=== PATIENT | male | born 1940 | race African-American/Black ===

== ENCOUNTER 2016-11-12 07:54 | Inpatient (IN) ==
[2016-11-12 09:52] LABS: Basophils % 0.5 % (0.0-0.8); Hematocrit 32.8 VOL% (42.0-52.0); Hemoglobin 9.5 GM/DL (14.0-18.0); Immature Granulocytes % 0.3 %; Immature Granulocytes Absolute 0.01 #; Lymphocytes # 0.5 10*3/uL (1.4-4.0); Lymphocytes % 12.3 % (21.2-54.2); Mean Corpuscular Hemoglobin 21 PG (27-34); Mean Corpuscular Volume 72.6 FL (87-102); Monocytes # 0.6 10*3/uL (0.11-0.8); Monocytes % 14.1 % (1.7-12.7); NRBC # 0.04 10*3/uL; Neutrophils # 2.8 10*3/uL (1.4-7.4); Neutrophils % 71.8 % (38.7-73.9); Platelet Count 155 10*3/uL (130-400); Red Blood Count 4.52 10*6/uL (3.8-5.5); Red Cell Distribution Width 22.1 % (9.3-17.3); White Blood Count 3.9 10*3/uL (4.5-13.71)
--- NOTE | 2016-11-12 09:56 | Emergency Department Note ---
Arrival - Arrival ED Nursing Triage Note: C/O chest pain and SOB X 1 week. Pt and family are poor historians. Mode of Arrival: Wheelchair Source: Patient - History of Present Illness Onset (ago): week(s) (1) Severity: mild <Kelsi Powell - Last Filed: 11/12/16 09:51> <Krishna King Cornel - Last Filed: 11/12/16 11:22> - Arrival Chief Complaint: Chest Pain Stated Complaint: CHEST PAIN/SOB STOMACH PAIN Time Seen by Provider: 11/12/16 09:14 - History of Present Illness HPI Narrative: 76 y/o black male presents to the ER with his daughter complaining of anxiety, insomnia, dyspnea and chest pain x 1 week. Patient daughter states he has episodes where he screams out during the day and night but is unable to tell her what is wrong. Patient is a very poor historian. Past medical history significant for CHF, renal insufficiency, HTN, CABG, gout, and pacemaker. Patients primary care physician: Dr. Brown. Senior Center Director: Dr. Salmon. Neurologist: Dr. Franklin (Kelsi Powell) Allergies/Adverse Reactions: Allergies Allergy/AdvReac Type Severity Reaction Status Date / Time aspirin Allergy Unknown/Unable Verified 06/09/16 18:33 to obtain Penicillins Allergy Unknown/Unable Verified 06/09/16 18:33 to obtain Home Medications: Home Medications Medication Instructions Recorded Confirmed Type Carvedilol [Coreg] 6.25 mg PO BID 06/09/16 06/09/16 History Febuxostat [Uloric] 40 mg PO DAILY 06/09/16 06/09/16 History Isosorbide Mononitrate [Isosorbide 30 mg PO DAILY 06/09/16 06/09/16 History Mononitrate ER] Albuterol/Ipratropium Neb [Duoneb] 3 ml RESP TX TID nebulization 06/13/16 Rx solution Bisacodyl Tab [Dulcolax Tab] 10 mg PO DAILY PRN #0 tablet 06/13/16 Rx Docusate Sodium Cap [Colace Cap] 100 mg PO BID PRN #0 capsule 06/13/16 Rx Furosemide Tab [Lasix Tab] 80 mg PO BID DIURETIC #0 06/13/16 06/09/16 Rx Lactulose Liquid [Chronulac] 20 gm PO Q4H PRN #0 udcup 06/13/16 Rx Nicotine 21 mg/24 Hr Patch 1 patch TRANSDERM DAILY patch 06/13/16 Rx [Nicoderm CQ 21 mg/24 hr Patch] Pantoprazole Tab [Protonix Tab] 40 mg PO DAILY tablet 06/13/16 Rx Tamsulosin [Flomax] 0.4 mg PO DAILY capsule 06/13/16 Rx hydrALAZINE TAB [Apresoline Tab] 25 mg PO TID #0 06/13/16 06/09/16 Rx Acetamin/Codeine 300-30 Tab 1 tablet PO Q6H #10 tablet 06/22/16 Rx [Tylenol/Codeine #3] Clindamycin Cap [Cleocin Cap] 300 mg PO Q8HR #30 capsule 06/22/16 Rx Review of System - Review of System ROS unobtainable: other (very poor historian ) 12 point system: reviewed and no additional remarkable complaints except as stated - Review of System Cardiovascular: Present: chest pain, other (dyspnea ) Psychiatric: Present: anxiety <Kelsi Powell - Last Filed: 11/12/16 09:51> Medical,Surgical,& Family Hx - Medical History Cardio: History of: CHF, Hypertension Rheumatology: History of;: Gout Renal: History of: Renal Problems ("Kidneys weakened") Musculoskeletal: History of: Musculoskeletal Problems (arthritis) Hematology: History of: Anemia - Surgical History Cardiac Surgeries: Sugical HX of: Cardiac Catheterization, Cardiac Surgery ( bypass in 2010), Internal Defibrillator (pacemaker) - Family History Family History: Reports;: Family Heart Disease, Family Hypertension Denies;: Family Diabetes - Social History Smoking Status: Current every day smoker Frequency of Alcohol Use: None Type of Drug Use: None <Kelsi Powell - Last Filed: 11/12/16 09:51> Exam - General General appearance: alert, in no apparent distress - ENT ENT exam: Present: normal exam, normal oropharynx, mucous membranes moist - Chest Chest inspection: Present: normal inspection - Respiratory Respiratory exam: Present: normal lung sounds bilaterally - Cardiovascular Cardiovascular exam: Present: regular rate, normal rhythm, normal heart sounds, other (1+pedal edema ) - Abdominal Exam Abdominal exam: Present: distention, tenderness (LUQ, LLQ), hypoactive bowel sounds - Extremities Exam Extremities exam: Present: normal inspection, full ROM - Neurological Exam Neurological exam: Present: alert, oriented X3 - Psychiatric Psychiatric exam: Present: normal affect, normal mood - Skin Skin exam: Present: warm, dry <Kelsi Powell - Last Filed: 11/12/16 09:51> Vital Signs: Vital Signs Temperature 97.4 F L 11/12/16 08:06 Pulse Rate 79 11/12/16 08:06 Respiratory Rate 22 11/12/16 08:06 Blood Pressure 129/79 11/12/16 08:06 O2 Sat by Pulse Oximetry 97 11/12/16 08:06 (Kelsi Powell) (Krishna King) Results <AndreKelsi - Last Filed: 11/12/16 09:51> - Labs CBC & BMP: 11/12/16 09:06 11/12/16 09:06 Lab Results: I have reviewed the patients labs - Diagnostic Findings Procedure: CT Abdomen and Pelvis: image reviewed by me ([place] pleural effusions with dependent atelectatic changes and cardiomegaly. Anasarca. Ascites. Iliac aneurysms incidentally noted. Other findings to be discussed and final radiology report.) <Krishna King - Last Filed: 11/12/16 11:22> - Labs Labs: Lab Results WBC 3.9 10*3/uL (4.5-13.71) L 11/12/16 09:06 RBC 4.52 10*6/uL (3.8-5.5) 11/12/16 09:06 Hgb 9.5 GM/DL (14.0-18.0) L 11/12/16 09:06 Hct 32.8 VOL% (42.0-52.0) L 11/12/16 09:06 MCV 72.6 FL (87-102) L 11/12/16 09:06 MCH 21 PG (27-34) L 11/12/16 09:06 MCHC 29.0 GM/DL (32-36) L 11/12/16 09:06 RDW 22.1 % (9.3-17.3) H 11/12/16 09:06 Plt Count 155 10*3/uL (130-400) 11/12/16 09:06 Neut % (Auto) 71.8 % (38.7-73.9) 11/12/16 09:06 Lymph % (Auto) 12.3 % (21.2-54.2) L 11/12/16 09:06 [place] % (Auto) 14.1 % (1.7-12.7) H 11/12/16 09:06 Eos % (Auto) 1.0 % (0.00-10.9) 11/12/16 09:06 Baso % (Auto) 0.5 % (0.0-0.8) 11/12/16 09:06 Neut # (Auto) 2.8 10*3/uL (1.4-7.4) 11/12/16 09:06 Lymph # (Auto) 0.5 10*3/uL (1.4-4.0) L 11/12/16 09:06 [place] # (Auto) 0.6 10*3/uL (0.11-0.8) 11/12/16 09:06 Eos # (Auto) 0.0 10*3/uL (0.0-0.87) 11/12/16 09:06 Baso # (Auto) 0.0 10*3/uL (0.0-0.2) 11/12/16 09:06 Immature Gran % 0.3 % 11/12/16 09:06 Nucleated RBC % 1.0 /100WBC 11/12/16 09:06 Immature Gran # 0.01 # 11/12/16 09:06 Nucleated RBCs # 0.04 10*3/uL 11/12/16 09:06 Polychromasia Slight 11/12/16 09:06 Hypochromasia 2+ 11/12/16 09:06 Target Cells Slight 11/12/16 09:06 Acanthocytes (Spur) 1+ 11/12/16 09:06 Morphology Comment 11/12/16 09:06 Sodium 143 MMOL/L (136-145) 11/12/16 09:06 Potassium 4.3 MMOL/L (3.5-5.1) 11/12/16 09:06 Chloride 110 MMOL/L (98-107) H 11/12/16 09:06 Carbon Dioxide 20 MMOL/L (21-32) L 11/12/16 09:06 Anion Gap 17.3 MMOL/L (5.0-15.0) H 11/12/16 09:06 BUN 91 MG/DL (7-18) H 11/12/16 09:06 Creatinine 3.80 MG/DL (0.70-1.30) H 11/12/16 09:06 GFR Calculation 18 ML/MIN 11/12/16 09:06 BUN/Creatinine Ratio 23.00 RATIO (6.00-20.00) H 11/12/16 09:06 Glucose 65 MG/DL (74-106) L 11/12/16 09:06 Calculated Osmolality 310.0 MOS/KG (273-304) H 11/12/16 09:06 Calcium 9.0 MG/DL (8.5-10.1) 11/12/16 09:06 Total Bilirubin 1.30 MG/DL (0.2-1.0) H 11/12/16 09:06 AST 25 U/L (0-37) 11/12/16 09:06 ALT 17 U/L (16-61) 11/12/16 09:06 Alkaline Phosphatase 202 U/L (45-117) H 11/12/16 09:06 Total Creatine Kinase 237 U/L (39-308) 11/12/16 09:06 CK-MB (CK-2) 8.1 U/L (0.5-3.6) H 11/12/16 09:06 CK and CKMB Interp 3.4 % 11/12/16 09:06 Troponin I 0.134 NG/ML (0.00-0.045) H 11/12/16 09:06 B-Natriuretic Peptide 1630 PG/ML (2-100) H 11/12/16 09:06 Total Protein 8.5 G/DL (6.4-8.3) H 11/12/16 09:06 Albumin 3.3 G/DL (3.4-5.0) L 11/12/16 09:06 Globulin 5.2 G/DL (2.3-3.5) H 11/12/16 09:06 Albumin/Globulin Ratio 0.6 RATIO (1.1-2.2) L 11/12/16 09:06 Lipase 129.0 U/L (73-393) 11/12/16 09:50 Urine Color Straw (Yellow) 11/12/16 09:10 Urine Appearance Clear (Clear) 11/12/16 09:10 Urine pH 5.0 (4.5-8.0) 11/12/16 09:10 Ur Specific [place] 1.008 (1.001-1.035) 11/12/16 09:10 Urine Protein Negative MG/DL 11/12/16 09:10 Urine Glucose (UA) Negative mg/dL (Negative) 11/12/16 09:10 Urine Ketones Negative mg/dL (Negative) 11/12/16 09:10 Urine Blood Negative mg/dL (Negative) 11/12/16 09:10 Urine Nitrate Negative (Negative) 11/12/16 09:10 Urine Bilirubin Negative mg/dL (Negative) 11/12/16 09:10 Urine Urobilinogen < 2.0 EU/DL (0.2-1.0) H 11/12/16 09:10 Urine Leukocytes Negative Neelam/ul (Negative) 11/12/16 09:10 Urine RBC 1 /HPF (0-4) 11/12/16 09:10 Urine WBC <1 /HPF (0-6) 11/12/16 09:10 Hyaline Casts 1 /LPF (0-3) 11/12/16 09:10 Urine Mucus Occasional /LPF (Occasional) 11/12/16 09:10 Ur Culture Indicated? Not indicated 11/12/16 09:10 (Krishna King) Disposition <Kelsi Powell - Last Filed: 11/12/16 09:51> Case discussed with: patient, patient's family Time of Disposition: 11:22 <Krishna King - Last Filed: 11/12/16 11:22> Clinical Impression: Anemia, CHF exacerbation, BPH (benign prostatic hyperplasia), Dyspnea, Insulin dependent diabetes mellitus Disposition: Still a Patient Condition: Stable
[2016-11-12 10:00] LABS: Apearance,Urine CLEAR (Clear); Bilirubin,Urine Negative (Negative); Blood, Urine Negative (Negative); Glucose,Urine (UA) Negative (Negative); Hyaline Casts,Urine 1 /LPF (0-3); Ketones,Urine Negative (Negative); Mucus,Urine Occasional /LPF (Occasional); Nitrite,Urine Negative (Negative); Protein,Urine Negative; RBC,Urine 1 /HPF (0-4); Urine Color Straw (Yellow); Urine Specific Gravity 1.008 (1.001-1.035); Urine Urobilinogen < 2.0 EU/DL (0.2-1.0); WBC,Urine <1 /HPF (0-6)
[2016-11-12 10:08] LABS: Albumin 3.3 G/DL (3.4-5.0); Bilirubin,Total 1.3 MG/DL (0.2-1.0); CKMB % 3.4 %; Potassium 4.3 MMOL/L (3.5-5.1); Total Protein 8.5 G/DL (6.4-8.3)
[2016-11-12 10:11] LABS: Troponin I Only 0.134 NG/ML (0.00-0.045)
--- NOTE | 2016-11-12 10:12 | XRay Report ---
Exam: XR chest 1V Date: 11/12/2016 9:26 AM Comparison: 06/09/2016 Indication: Chest pain, dyspnea Technique: AP sitting chest Findings: Stable cardiomegaly with prior median sternotomy. Left subclavian atrioventricular AICD. Reduced parenchymal findings with resolved pleural effusions. Stable mediastinum with degenerative changes. Spina bifida occulta defect at T1. Impression: Improved CHF with chronic scarring in patient with prior median sternotomy. Stable left subclavian atrioventricular AICD. PROCEDURE INTERPRETED AT [facility] DEPARTMENT OF RADIOLOGY Final Report Signed by: Dr. Aundrea Vaughn
--- NOTE | 2016-11-12 10:18 | XRay Report ---
Exam: XR abdomen 2V Date: 11/12/2016 9:28 AM Comparison: 06/09/2016 Indication: Generalized abdominal pain, distention Technique: Supine and left lateral decubitus abdomen Findings: Nonobstructed bowel gas pattern. Radiolucent findings noted in the right lateral abdominal location. Left subclavian atrioventricular AICD with prior median sternotomy. Postoperative findings in the left femoral location with diffuse arterial calcifications. Degenerative changes are noted. Impression: Nonobstructed bowel gas pattern with no free air. Diffuse arterial calcifications are noted. Stable postoperative findings. Radiolucent findings in the right lateral abdominal location on the decubitus films which is probably related to overlapping soft tissue densities since no definite free air is identified in the accompanying chest x-ray. However CT would be helpful to exclude possible very small pneumoperitoneum. PROCEDURE INTERPRETED AT [facility] DEPARTMENT OF RADIOLOGY Final Report Signed by: Dr. Aundrea Vaughn
[2016-11-12 10:42] LABS: Acanthocytes 1+; Hypochromasia 2+; Polychromasia Slight; Target Cells Slight
--- NOTE | 2016-11-12 11:25 | CT Report ---
Referring physician: Krishna King EXAM: CT abdomen and pelvis without contrast DATE: November 12, 2016 COMPARISON: Abdominal x-ray November 12, 2016 REASON: Generalized abdominal pain, abnormal x-ray TECHNIQUE: Axial images of the abdomen and pelvis were obtained without the use of contrast. Coronal and sagittal reformatted images were also provided. Total DLP is 486.7 mGy*cm. FINDINGS: Lower thorax: There is cardiomegaly, sternotomy change and cardiac pacing leads. Mild bilateral pleural fluid is present, and there is minimal bibasilar atelectasis. ABDOMEN: Liver: Unremarkable as visualized. Gallbladder and bile ducts: There may be small gallstones, but this is difficult to confirm. Evaluation for cholecystitis is limited by ascites. No biliary duct dilatation is seen. Pancreas: Unremarkable. Spleen: Unremarkable. Adrenals: Unremarkable. Kidneys and ureters: No hydronephrosis is present. There are small calcifications at the renal fletcher bilaterally, which are favored to be vascular. No ureteral calculi are seen. There is a probable cyst at the lower pole of the right kidney, which is difficult to evaluate due to motion artifact. It measures approximately 4.4 cm. PELVIS: Bladder: Unremarkable. Reproductive: The prostate is mildly enlarged. ABDOMEN AND PELVIS: Bowel: There is no evidence of bowel obstruction. Evaluation for bowel inflammation is limited by ascites and areas of poor distention, but no definite bowel inflammation is seen. Appendix: The appendix is not identified. Vasculature: The abdominal aorta is mildly aneurysmal, measuring 3.1 x 3.0 cm on image 68. The descending thoracic aorta is also mildly prominent, measuring 3.0 cm in diameter. There is moderate scattered calcified plaque at the arteries. Peritoneum: No free air is identified, but there is mild to moderate scattered ascites within the abdomen and pelvis. Lymph nodes: No suspicious adenopathy is seen. Abdominal/pelvic wall: There is prominent anasarca. A small umbilical hernia is present and contains ascites. There are also small fat-containing bilateral inguinal hernias with minimal ascites extending into the left inguinal hernia. Surgical clips are noted at the left groin. Bones: There are a few small sclerotic densities at the osseous pelvis.. There are nonspecific but likely represent bone islands. Scattered degenerative change is seen at the pelvis and spine, but no acute osseous process is identified. IMPRESSION: 1. No free air is identified. 2. Cardiomegaly, mild bilateral pleural effusions and minimal bibasilar atelectasis. 3. Mild to moderate ascites and prominent anasarca. 4. Mild aneurysmal dilatation of the aorta, measuring 3.1 x 3.0 cm below the renal arteries. 5. Small umbilical hernia containing ascites. There are also small bilateral fat-containing inguinal hernias with minimal ascites within the left inguinal hernia. 6. Possible gallstones. 7. Right renal cyst. 8. Prostamegaly. The CT exam was performed using one or more of the following dose reduction techniques: Automated exposure control and adjustment of the mA and/or kV according to patient size. PROCEDURE INTERPRETED AT [facility] DEPARTMENT OF RADIOLOGY Final Report Signed by: Dr. Russ Castañeda
[2016-11-12] MEDS ORDERED: ONDANSETRON 4 MG/2 ML VIAL IV PRN (11:33)
[2016-11-12] MEDS ORDERED: LACTULOSE 20 GM/30 ML UDCUP PO PRN (11:33)
[2016-11-12] MEDS ORDERED: DEXTROSE 50% 25 GM/50 ML VIAL IV PRN (11:33)
[2016-11-12] MEDS ORDERED: GLUCAGON 1 MG VIAL IM PRN (11:33)
[2016-11-12] MEDS ORDERED: ACETAMINOPHEN 325 MG TABLET PO PRN (11:33)
[2016-11-12] MEDS ORDERED: MORPHINE 2 MG/1 ML SYRINGE IV PRN (11:33)
--- NOTE | 2016-11-12 14:00 | Hospitalist History & Physical ---
Assessment and Plan - Time spent with patient Time spent with patient: Greater than 30 minutes (1) CHF exacerbation Status: Acute Assessment and plan: admit Resume home meds as appropriate IV Lasix, allen cath monitor I&O routine labs in AM DVT prophylaxis further plan and addendum to follow per DR. Mims Current Visit: Yes History of Present Illness Chief complaint: shortness of breath, edema History of present illness: Mr. Johns is a 76 year old male who presented to the Er today with dyspnea and chest pain and insomnia. ER physician states that pt's daughter says he will scream out in pain but is unable to tell her why. Mr. Johns is a very poor historian and has difficulty speaking with me. He is not able to provide ROS of PMH. Old record review shows him with a PMH significant for HTN, CHF, Renal insufficiency, gout, CABG, and PM. His PCP is Dr. Brown, sales and retail management recruiter is Dr. Salmon. Today he is noted to have anasarca, an elevated BNP, and CHF on CXR. His last ECHO is noted with an EF of 10-15% with severely decreased systolic function. Home Medications Medication Instructions Recorded Confirmed Type Carvedilol [Coreg] 6.25 mg PO BID 06/09/16 06/09/16 History Febuxostat [Uloric] 40 mg PO DAILY 06/09/16 06/09/16 History Isosorbide Mononitrate [Isosorbide 30 mg PO DAILY 06/09/16 06/09/16 History Mononitrate ER] Albuterol/Ipratropium Neb [Duoneb] 3 ml RESP TX TID nebulization 06/13/16 Rx solution Bisacodyl Tab [Dulcolax Tab] 10 mg PO DAILY PRN #0 tablet 06/13/16 Rx Docusate Sodium Cap [Colace Cap] 100 mg PO BID PRN #0 capsule 06/13/16 Rx Furosemide Tab [Lasix Tab] 80 mg PO BID DIURETIC #0 06/13/16 06/09/16 Rx Lactulose Liquid [Chronulac] 20 gm PO Q4H PRN #0 udcup 06/13/16 Rx Nicotine 21 mg/24 Hr Patch 1 patch TRANSDERM DAILY patch 06/13/16 Rx [Nicoderm CQ 21 mg/24 hr Patch] Pantoprazole Tab [Protonix Tab] 40 mg PO DAILY tablet 06/13/16 Rx Tamsulosin [Flomax] 0.4 mg PO DAILY capsule 06/13/16 Rx hydrALAZINE TAB [Apresoline Tab] 25 mg PO TID #0 06/13/16 06/09/16 Rx Acetamin/Codeine 300-30 Tab 1 tablet PO Q6H #10 tablet 06/22/16 Rx [Tylenol/Codeine #3] Clindamycin Cap [Cleocin Cap] 300 mg PO Q8HR #30 capsule 06/22/16 Rx Allergies Allergy/AdvReac Type Severity Reaction Status Date / Time aspirin Allergy Unknown/Unable Verified 06/09/16 18:33 to obtain Penicillins Allergy Unknown/Unable Verified 06/09/16 18:33 to obtain Medical,Surgical,& Family Hx - Medical History Cardio: History of: CHF, Hypertension Rheumatology: History of;: Gout Renal: History of: Renal Problems ("Kidneys weakened") Musculoskeletal: History of: Musculoskeletal Problems (arthritis) Hematology: History of: Anemia - Surgical History Cardiac Surgeries: Sugical HX of: Cardiac Catheterization, Cardiac Surgery ( bypass in 2010), Internal Defibrillator (pacemaker) - Family History Family History: Reports;: Family Heart Disease, Family Hypertension Denies;: Family Diabetes - Social History Smoking Status: Current every day smoker Frequency of Alcohol Use: None Type of Drug Use: None ROS unobtainable: due to mental status Exam - Constitutional General appearance: no acute distress, over weight - Head Head exam: Present: normal inspection, normocephalic - Eye Eye exam: Present: EOMI. Absent: scleral icterus Pupils: Present: WINSOME, normal accommodation - ENT ENT exam: Present: normal exam, normal oropharynx - Neck Neck exam: Present: normal inspection. Absent: lymphadenopathy - Respiratory Respiratory exam: Present: decreased breath sounds, other (coarse wet bilat). Absent: wheezes - Cardiovascular Cardiovascular exam: Present: regular rate and rhythm. Absent: tachycardia - GI/Abdominal GI/Abdominal exam: Present: normal bowel sounds, soft. Absent: tenderness - Extremities Exam Extremities exam: Present: normal inspection, full ROM. Absent: edema - Back Exam Back exam: Present: normal inspection. Absent: muscle spasm - Neurological Exam Neurological exam: Present: alert, altered (at neuro baseline) - Psychiatric Psychiatric exam: Present: normal affect, normal mood - Skin Skin exam: Present: normal color, warm, dry Results - Labs CBC & BMP: 11/12/16 09:06 11/12/16 09:06 Lab Results: I have reviewed the past 24 hour labs
[2016-11-12] MEDS: FUROSEMIDE 40 MG/4 ML VIAL IV SCH (16:04)
[2016-11-13] MEDS ORDERED: ALUMINUM/MAGNES/SIMETH MAX STR 30 ML UDCUP PO PRN (00:32)
[2016-11-13 00:47] LABS: Basophils % 0.5 % (0.0-0.8); Eosinophils % 0.8 % (0.00-10.9); Hematocrit 29.4 VOL% (42.0-52.0); Hemoglobin 8.5 GM/DL (14.0-18.0); Immature Granulocytes % 0.5 %; Immature Granulocytes Absolute 0.02 #; Lymphocytes # 0.3 10*3/uL (1.4-4.0); Lymphocytes % 8.9 % (21.2-54.2); Mean Corpuscular HGB Conc 28.9 GM/DL (32-36); Mean Corpuscular Hemoglobin 21 PG (27-34); Mean Corpuscular Volume 72.1 FL (87-102); Monocytes # 0.6 10*3/uL (0.11-0.8); Monocytes % 16.5 % (1.7-12.7); NRBC # 0.08 10*3/uL; Neutrophils # 2.8 10*3/uL (1.4-7.4); Neutrophils % 72.8 % (38.7-73.9); Platelet Count 138 T/CUMM (130-400); Red Blood Count 4.08 MC/CUMM (3.8-5.5); Red Cell Distribution Width 21.9 % (9.3-17.3); White Blood Count 3.8 T/CUMM (4-12)
[2016-11-13 00:59] LABS: Albumin 3.1 G/DL (3.4-5.0); Bilirubin,Total 1.6 MG/DL (0.2-1.0); Calcium 8.5 MG/DL (8.5-10.1); Osmolality,Calculated 320.6 MOS/KG (273-304); Potassium 4.1 MMOL/L (3.5-5.1); Total Protein 7.5 G/DL (6.4-8.3)
[2016-11-13 01:01] LABS: CKMB % 3.4 %
[2016-11-13 01:02] LABS: Troponin I Only 0.124 NG/ML (0.00-0.045)
[2016-11-13 04:59] LABS: Eosinophils 2 % (0-10); Lymphocytes 12 % (20-55); Nucleated Red Blood Cells 3 (0-5); Platelet Estimate Normal; Segmented Neutrophils 68 % (50-85); Total Cells Counted 100
--- NOTE | 2016-11-13 06:18 | EKG Report ---
Stationary ECG Study [facility] Test Date: 11/13/2016 12:19:44 AM Pat Name: KAVITHA RAMIREZ Department: Room: 233 Gender: M Game Designer: KEI : 1940 Requested by: Simeon Sherwood Order Number: [id number] Reading MD: ALONSO GHOSH Intervals [place] Rate: 63 P: -84 NE: 126 QRS: -79 QRSD: 165 T: 133 QT: 473 QTc: 481 Interpretive Statements ELECTRONIC ATRIAL PACEMAKER ELECTRONIC VENTRICULAR PACEMAKER ABNORMAL RHYTHM ECG Electronically Signed On 11-13-16 18:05:18 ARMORED CABLE MACHINE OPERATOR by ALONSO GHOSH [email or web address]
[2016-11-13] MEDS: FUROSEMIDE 40 MG/4 ML VIAL IV SCH (08:02)
--- NOTE | 2016-11-13 08:25 | XRay Report ---
Referring Physician: Simeon Sherwood Exam: XR KUB Date: November 13, 2016 at 7:49 AM Reason: Abdominal distention Comparison: Abdomen 2 views November 12, 2016 Findings: There is no evidence of bowel obstruction or free air. There is cardiomegaly, sternotomy change and cardiac pacing leads. Scattered arterial calcification is also present, and there are pelvic phleboliths. The osseous structures appear stable with scattered degenerative change at the spine and osseous pelvis. Impression: 1. No acute abdominal process is identified. 2. Cardiomegaly. PROCEDURE INTERPRETED AT [facility] DEPARTMENT OF RADIOLOGY Final Report Signed by: Dr. Russ Castañeda
--- NOTE | 2016-11-13 09:21 | EKG Report ---
Stationary ECG Study [facility] ER Test Date: 11/12/2016 8:06:33 AM Pat Name: KAVITHA RAMIREZ Department: Room: 233 Gender: M [employer]: : 1940 Requested by: Brad Navarrete Order Number: [id number] Reading MD: ALONSO GHOSH Intervals [place] Rate: 56 P: 999 TN: 106 QRS: 234 QRSD: 169 T: 108 QT: 508 QTc: 500 Interpretive Statements ATRIAL FIBRILLATION VENTRICULAR PACING Electronically Signed On 11-13-16 17:59:27 WELT POCKET MACHINE OPERATOR by ALONSO GHOSH [id number]
--- NOTE | 2016-11-13 12:33 | Hospitalist Progress Note ---
Assessment and Plan - Time spent with patient Time spent with patient: Greater than 30 minutes (1) CHF exacerbation Status: Acute Assessment and plan: He appears to be stable. We'll discontinue his Lasix. Creatinine quita a little bit. Current Visit: Yes (2) Bradycardia Status: Acute Assessment and plan: Pacemaker in place. Current Visit: Yes (3) Chest pain Status: Acute Assessment and plan: Serial troponins are at baseline. He does not complain of chest pain currently. Will consult cardiology for bradycardia and chest pain. Current Visit: No (4) Chronic kidney disease, stage IV (severe) Status: Acute Assessment and plan: Patient's creatinine quita slightly with administration of Lasix. This current value likely represents his normal creatinine. Current Visit: No (5) BPH (benign prostatic hyperplasia) Status: Acute Assessment and plan: Continue homes medications. Current Visit: Yes Hospitalist: Subjective Interval history: Patient agrees he feels much better this morning. He is an extremely poor historian and is unable to tell me much more than that despite several attempts to get the review of systems out of him. Exam - Constitutional Vitals: Period Temp Pulse Resp BP Sys/Shafer Pulse Ox Last 24 Hr 96.8 F-98.1 F 52-98 14-23 98-132/51-78 96-100 General appearance: no acute distress - Head Head exam: Present: normocephalic, atraumatic - Eye Eye exam: Present: EOMI Pupils: Present: WINSOME - ENT ENT exam: Present: normal exam - Neck Neck exam: Present: normal inspection - Respiratory Respiratory exam: Present: clear to auscultation bilaterally. Absent: rhonchi, wheezes - Cardiovascular Cardiovascular exam: Present: regular rate and rhythm. Absent: gallop, rubs, systolic murmur - GI/Abdominal GI/Abdominal exam: Present: normal bowel sounds, ascites, distended, soft. Absent: firm, guarding, tenderness, rebound - Extremities Exam Extremities exam: Present: normal inspection. Absent: calf tenderness, edema Results - Labs CBC & BMP: 11/13/16 00:16 11/13/16 00:16 Lab Results: I have reviewed the past 24 hour labs
[2016-11-13] MEDS: PANTOPRAZOLE 40 MG TABLET PO SCH (14:45)
--- NOTE | 2016-11-13 16:17 | Cardiology Consult Note ---
Black Thakkar Rachel, DANA, am scribing for, and in the presence of, Ronel Collins DO 16:11. Assessment and Plan (1) CHF exacerbation Status: Acute Current Visit: Yes (2) Cardiomyopathy Status: Chronic Assessment and plan: Echo done 10/22/16, EF 20% noted. Current Visit: No (3) Dyspnea Status: Chronic Current Visit: Yes (4) Anemia of chronic disease Status: Chronic Assessment and plan: H&H stable at 8.5 and 29.4, continue current plan of care. Current Visit: No (5) Gastroesophageal reflux Status: Chronic Current Visit: No (6) Chronic kidney disease, stage IV (severe) Status: Chronic Assessment and plan: Creatinine 4.2 noted, Routinely followed by Dr. Franklin. Current Visit: No (7) BPH (benign prostatic hyperplasia) Status: Acute Assessment and plan: Continue current plan of care. Current Visit: Yes (8) Ventricular bigeminy Status: Acute Assessment and plan: This is the etiology of the patient's "bradycardia" and recommend resumption of his beta-sania to suppress PVCs and also we have increased the rate of his pacing hopefully this will suppress the frequent PVCs. Current Visit: Yes (9) Coronary artery disease Status: Acute Current Visit: Yes Qualifiers: Coronary Disease-Associated Artery/Lesion type: [place] artery [place] vs. transplanted heart: [place] heart Associated angina: without angina Qualified Code(s): I25.10 - Atherosclerotic heart disease of [place] coronary artery without angina pectoris (10) Renal failure Status: Chronic Current Visit: No History of Present Illness - Data of Consult Patient: known to practice within the last 3 years Consult date: 11/13/16 Requesting Physician: Park Mims Primary care physician: Fernandez Brown - Consult Narrative Reason for consult: chest pain and bradycardia History of present illness: Mr. Johns is a 76 year old male patient with known coronary artery disease. He is routinely followed by Dr. Salmon. Patient is a very poor historian, majority of information obtained from the chart and old records. He has risk factors significant for hypertension, known coronary artery disease, dyslipidemia, smoker, sedentary lifestyle, obesity, and age. His past medical history includes: Chronic renal failure (followed by Dr. Franklin), ischemic cardiomyopathy (EF 20% noted on echo 10/22/16), gout, BPH, and GERD. According to previous records, he had a CABG and ICD/biventricular pacemaker ( interrogated August 2016) in [place] in 2010. However, we have no record of this and the patient is unable to tell me the hospital or physician who performed this operation. He denies family history of cardiac disease. He was last seen in the clinic by Dr. Salmon on 10/22/16. At that that time he was complaining of chronic dyspnea on exertion and orthopnea. An echo was done which revealed an EF of 20%, mild LVH, mild to severe biatrial enlargement, mild to moderate MR, moderate TR, mild aortic regurgitation, and a PAP 48 mmHg. His coreg was increased from 6.25 mg BID to coreg 12.5 BID at that time. It was also noted that patient did not tolerate Entresto well, this caused him to be more short of breath and was discontinued. Not on BETTY/ARB due to fear of worsening renal failure. Lexiscan was done February 2016 which revealed large severe inferior and moderate apical scarring with no ischemia. Patient was in his usual state of health until one week ago when he began experiencing chest pain, shortness of breath, and insomnia. Patient is a very poor historian and does not respond when asked questions. Unable to perform ROS. Upon exam patient's abdomen is noted to be extremely distended. When abdomen is palpated, patient moans loudly and reports pain. Patient denies all other complaints at this time. KUB - Nonobstructed bowel gas pattern with no free air. CT recommended. CT abdomen - No free air, cardiomegaly, mild aneurysmal dilatation of the aorta measuring 3.1 x 3.0, small unbilical hernia containing ascites, right renal cyst , and possible gallstones. Labs - Troponin (0.134 and 0.124) After reviewing previous records, patient seems to have chronically elevated troponins, baseline 0.1. BNP was 1630, yesterday. Diuresed with Lasix yesterday, discontinued today due to elevated creatinine 4.2. I saw and examined discussed the patient with [place]. As above. We discussed and also discussed with Mr. Marcel andres represented from [employer]. We interrogated his device. I reviewed his interrogation from August of this year as well. The patient has ischemic cardiomyopathy EF of 20% and is status post CRTD. He has bradycardia from frequent PVCs. We have made some adjustments to his defibrillator such as increasing the lower rate to 70 and also I recommend that we resume his beta-sania hopefully these will suppress the PVCs. The patient is encephalopathic or have his altered mental status this time he was unable to answer any questions. The most impressive finding on his physical exam is a resident distended apparently painful abdomen. This is being evaluated by the hospitalist. CC: Park Mims MD - Home Medications and Allergies Home Medications: Home Medications Medication Instructions Recorded Confirmed Type Febuxostat [Uloric] 40 mg PO DAILY 06/09/16 11/13/16 History Isosorbide Mononitrate [Isosorbide 30 mg PO DAILY 06/09/16 11/13/16 History Mononitrate ER] Pantoprazole Tab [Protonix Tab] 40 mg PO DAILY tablet 06/13/16 11/13/16 Rx Tamsulosin [Flomax] 0.4 mg PO DAILY capsule 06/13/16 11/13/16 Rx Carvedilol [Coreg] 12.5 mg PO BID 11/13/16 11/13/16 History Furosemide Tab [Lasix Tab] 40 mg PO BID DIURETIC 11/13/16 11/13/16 History Allergies/Adverse Reactions: Allergies Allergy/AdvReac Type Severity Reaction Status Date / Time aspirin Allergy Unknown/Unable Verified 06/09/16 18:33 to obtain Penicillins Allergy Unknown/Unable Verified 06/09/16 18:33 to obtain ROS unobtainable: due to mental status (The patient will only moaning any time you ask him a question. The only word that I can understand he said was "Esparza. 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[employer] - Interrogated 11/13/16 - results in chart) - Family History Family History: Denies;: Family Diabetes - Social History Smoking Status: Former smoker Frequency of Alcohol Use: None Type of Drug Use: None Physical Examination Vital Signs Temp Pulse Resp BP Pulse Ox 97.4 F L 79 22 129/79 97 11/12/16 08:06 11/12/16 08:06 11/12/16 08:06 11/12/16 08:06 11/12/16 08:06 General: Present: Other (Chronically ill appearing in mild amount of distress slightly tachypneic and moaning) Neck: Present: Supple Neck, Midline Trachea, No Masses, No Bruit, No Lymphadenopathy, No Thyromegaly Cardiac: Present: Reg Rate and Rhythm (Tones are very difficult to hear. PMI is not localized), Regular Rate, S1/S2 Lungs: Present: Decreased Breath Sounds, Bibasilar Rales, Oxygen Abdomen: Present: Active Bowel Sounds, Tender, Firm, Distended, Other (Resident to percussion with significant discomfort) Skin: Present: Clear. Absent: Rash, Suspicious Lesions, Ulceration, Wound Extremities: Present: Normal Gait, No Clubbing, No Cyanosis, Normal Upper Extr. Pulses, +1 Edema, Other (decreased BLE pulses. ) Result/EKG - Labs CBC & BMP: 11/13/16 00:16 11/13/16 00:16 Lab Results: I have reviewed the past 24 hour labs Labs: Laboratory Results - last 24 hr 11/12/16 11/12/16 11/13/16 15:09 19:56 00:16 WBC RBC Hgb Hct MCV MCH MCHC RDW Plt Count Neut % (Auto) Lymph % (Auto) [place] % (Auto) Eos % (Auto) Baso % (Auto) Neut # (Auto) Lymph # (Auto) [place] # (Auto) Eos # (Auto) Baso # (Auto) Total Counted Immature Gran % Nucleated RBC % Immature Gran # Segmented Neutrophils Lymphocytes Monocytes Eosinophils Basophils Nucleated RBCs Nucleated RBCs # Platelet Estimate Sodium Potassium Chloride Carbon Dioxide Anion Gap BUN Creatinine GFR Calculation BUN/Creatinine Ratio Glucose POC Glucose 108 H 110 H Calculated Osmolality Calcium Total Bilirubin AST ALT Alkaline Phosphatase Total Creatine Kinase 197 CK-MB (CK-2) 6.7 H CK and CKMB Interp 3.4 Troponin I 0.124 H Total Protein Albumin Globulin Albumin/Globulin Ratio 11/13/16 11/13/1611/13/17 00:16 00:16 08:31 WBC 3.8 L RBC 4.08 Hgb 8.5 L Hct 29.4 L MCV 72.1 L MCH 21 L MCHC 28.9 L RDW 21.9 H Plt Count 138 Neut % (Auto) 72.8 Lymph % (Auto) 8.9 L [place] % (Auto) 16.5 H Eos % (Auto) 0.8 Baso % (Auto) 0.5 Neut # (Auto) 2.8 Lymph # (Auto) 0.3 L [place] # (Auto) 0.6 Eos # (Auto) 0.0 Baso # (Auto) 0.0 Total Counted 100 Immature Gran % 0.5 Nucleated RBC % 2.1 Immature Gran # 0.02 Segmented Neutrophils 68 Lymphocytes 12 L Monocytes 17 H Eosinophils 2 Basophils 1.0 H Nucleated RBCs 3 Nucleated RBCs # 0.08 Platelet Estimate Normal Sodium 146 H Potassium 4.1 Chloride 112 H Carbon Dioxide 22 Anion Gap 16.1 H BUN 100 H Creatinine 4.20 H GFR Calculation 16 BUN/Creatinine Ratio 23.00 H Glucose 104 POC Glucose 104 Calculated Osmolality 320.6 H Calcium 8.5 Total Bilirubin 1.60 H AST 18 ALT 17 Alkaline Phosphatase 193 H Total Creatine Kinase CK-MB (CK-2) CK and CKMB Interp Troponin I Total Protein 7.5 Albumin 3.1 L Globulin 4.4 H Albumin/Globulin Ratio 0.7 L - EKG EKG results: interpreted by me (pacer rhythm ) I, Rnoel Collins, , personally performed the services described in this documentation, ascribed by Sharita Cleaning, DANA in my presence, and it is both accurate and complete 616 .
[2016-11-13] MEDS ORDERED: CARVEDILOL 6.25 MG TABLET PO SCH (17:00)
[2016-11-13] MEDS: CARVEDILOL 12.5 MG TABLET PO SCH (20:55)
[2016-11-14 06:10] LABS: Basophils % 0.3 % (0.0-0.8); Hematocrit 28.9 VOL% (42.0-52.0); Hemoglobin 8.5 GM/DL (14.0-18.0); Immature Granulocytes % 0.3 %; Immature Granulocytes Absolute 0.01 #; Lymphocytes # 0.4 10*3/uL (1.4-4.0); Lymphocytes % 9.5 % (21.2-54.2); Mean Corpuscular HGB Conc 29.4 GM/DL (32-36); Mean Corpuscular Hemoglobin 21 PG (27-34); Mean Corpuscular Volume 71.7 FL (87-102); Monocytes # 0.6 10*3/uL (0.11-0.8); NRBC # 0.04 10*3/uL; Neutrophils % 74.9 % (38.7-73.9); Platelet Count 134 T/CUMM (130-400); Red Blood Count 4.03 MC/CUMM (3.8-5.5); Red Cell Distribution Width 22.2 % (9.3-17.3)
[2016-11-14 06:28] LABS: Hypochromasia 2+; Ovalocytes Few; Target Cells Few
[2016-11-14 06:29] LABS: Microcytosis 2+
[2016-11-14 06:30] LABS: Platelet Estimate Adequate
[2016-11-14 06:35] LABS: Calcium 8.6 MG/DL (8.5-10.1); Osmolality,Calculated 326.3 MOS/KG (273-304); Potassium 4.3 MMOL/L (3.5-5.1)
[2016-11-14] MEDS ORDERED: PANTOPRAZOLE 40 MG TABLET PO SCH (09:00)
[2016-11-14] MEDS: CARVEDILOL 12.5 MG TABLET PO SCH ×2 (09:46→20:22)
[2016-11-14] MEDS: FUROSEMIDE 40 MG TABLET PO SCH ×2 (09:46→16:48)
[2016-11-14] MEDS: TAMSULOSIN 0.4 MG CAPSULE PO SCH (09:46)
[2016-11-14] MEDS: PANTOPRAZOLE 40 MG TABLET PO SCH (09:46)
[2016-11-14] MEDS: ISOSORBIDE MONONITRATE 30 MG TABLET PO SCH (09:47)
[2016-11-14] MEDS ORDERED: SIMETHICONE DROPS 40 MG/0.6 ML 30 ML BOTTLE PO PRN (12:01)
--- NOTE | 2016-11-14 12:09 | Hospitalist Progress Note ---
Assessment and Plan (1) Hypernatremia Status: Acute Assessment and plan: Sodium level continued to increase, 148 likely due due to dehydration and poor oral intake Will start on D5W at 75 cc per hr Recheck sodium level in am Current Visit: Yes (2) CHF exacerbation Status: Chronic Assessment and plan: Patient with anasarca and mild and moderate ascites On Lasix therapy Continue current medical regimen as cardiology recommend Restarted on beta-blockers Current Visit: Yes (3) Ventricular bigeminy Status: Acute Assessment and plan: His pacemaker low threshold was increased to 70 He started on Coreg Heart rate 60-70 last night Current Visit: Yes (4) Anemia of chronic disease Status: Chronic Assessment and plan: H&H is stable we will continue to monitor H and H Current Visit: No (5) BPH (benign prostatic hyperplasia) Status: Chronic Assessment and plan: Continue home medication Current Visit: No (6) Cardiomyopathy Status: Chronic Assessment and plan: Ischemic cardiomyopathy Status post ICD placement On Lasix therapy Current Visit: No (7) Renal failure Status: Chronic Assessment and plan: His creatinine 4.2 I suspect is due to poor oral intake, dehydration and Lasix therapy Will repeat creatinine level in the morning Start on D5W maintenance If creatinine continues to rise we will consult renal Current Visit: No Hospitalist: Subjective Interval history: Mr. Johns is a 76 year old male who presented to the Er today with dyspnea and chest pain and insomnia. ER physician states that pt's daughter says he will scream out in pain but is unable to tell her why. Mr. Johns is a very poor historian and has difficulty speaking with staff. He is not able to provide ROS of PMH. Old record review shows him with a PMH significant for HTN, CHF, Renal insufficiency, gout, CABG, and PM. His PCP is Dr. Brown, ship erector is Dr. Salmon. Cardiology was consulted. His last echo revealed ejection fraction 20%. It was noted that his bradycardia due to PVCs, recommended to restart beta blockers and PM was increase to low 70/min. Apparently his abdomen was distended and he was tender on abdominal palpation. Abdominal CT was ordered, acute intra-abdominal abnormalities was noted, just mild to moderate ascites, anasarca. Today: Alert. He can say his name. No distress noted. Denies pain. Afebrile. Vital signs stable. He was ambulating with assistance of physical therapy yesterday. Exam - Constitutional Vitals: Period Temp Pulse Resp BP Sys/Shafer Pulse Ox Last 24 Hr 97.4 F-97.9 F 20-70 0-22 116-128/70-79 96-97 General appearance: normal weight, no acute distress, over weight - Head Head exam: Present: normal inspection, normocephalic, atraumatic - Eye Eye exam: Present: EOMI Pupils: Present: WINSOME - ENT ENT exam: Present: normal exam - Neck Neck exam: Present: normal inspection - Respiratory Respiratory exam: Present: clear to auscultation bilaterally - Cardiovascular Cardiovascular exam: Present: regular rate and rhythm - GI/Abdominal GI/Abdominal exam: Present: normal bowel sounds, distended, firm, hypoactive bowel sounds, other ([place] on percussion x 4 ) - Extremities Exam Extremities exam: Present: normal inspection, normal capillary refill - Neurological Exam Neurological exam: Present: alert (does not communicate ) - Skin Skin exam: Present: normal color, warm Results - Labs CBC & BMP: 11/14/16 05:54 11/14/16 05:54
--- NOTE | 2016-11-14 12:23 | Cardiology Progress Note ---
I, Britt Yap, RN, am scribing for, and in the presence of, Ronel Collins DO 12 :23. Assessment and Plan (1) Anemia Status: Acute Assessment and plan: H&H is slightly lower today at 8.5 and 28.9. Current Visit: Yes (2) BPH (benign prostatic hyperplasia) Status: Chronic Current Visit: No (3) CHF exacerbation Status: Chronic Assessment and plan: His sodium is elevated he has some ascites. I discussed with Dr. Maldonado I agree with some gentle hydration. Current Visit: Yes Qualifiers: Congestive heart failure type: combined Qualified Code(s): I50.43 - Acute on chronic combined systolic (congestive) and diastolic (congestive) heart failure (4) Coronary artery disease Status: Chronic Current Visit: No Qualifiers: Coronary Disease-Associated Artery/Lesion type: [place] artery [place] vs. transplanted heart: [place] heart Associated angina: without angina Qualified Code(s): I25.10 - Atherosclerotic heart disease of [place] coronary artery without angina pectoris (5) Ventricular bigeminy Status: Acute Current Visit: Yes (6) Dyspnea Status: Chronic Current Visit: Yes (7) Cardiomyopathy Status: Chronic Assessment and plan: EF 20% on ECHO done 10/22/16. Current Visit: No (8) Chronic kidney disease, stage IV (severe) Status: Chronic Current Visit: No (9) Gastroesophageal reflux Status: Chronic Current Visit: No Cardiology - PN: Subj Interval history: Resting in bed in no acute distress. He does not respond to any questions except with moans. He is not on telemetry monitoring, but his vital signs have documented his heart rate in the 50-70 range during the night, blood pressures stable. I saw Mr. Johns with this daily. The patient is much more alert today. He is eating lunch when I saw him. He is somewhat conversant but still appears to be slightly confused and unaware of his baseline. He is currently paced. With increase in his pacer rate and beta-sania his VPCs have dramatically decreased. Exam (Progress Note) - Constitutional Vitals: Period Temp Pulse Resp BP Sys/Shafer Pulse Ox Last 24 Hr 97.4 F-97.9 F 20-70 0-22 116-128/63-79 96-98 General appearance: no acute distress, over weight - Head Head exam: Absent: abrasion, hematoma - Eye Eye exam: Absent: periorbital swelling, laceration to eyelids - Respiratory Respiratory exam: Present: rales. Absent: accessory muscle use, decreased breath sounds - Cardiovascular Cardiovascular exam: Present: regular rate and rhythm, other (ICD noted) - GI/Abdominal GI/Abdominal exam: Present: normal bowel sounds, distended (Resident and slightly less tender), firm - Extremities Exam Extremities exam: Present: edema (1+ bilateral lower extremities) - Neurological Exam Neurological exam: Present: alert. Absent: oriented X3 (unable to fully assess as he only moans) - Skin Skin exam: Present: warm, dry Result/EKG - Labs CBC & BMP: 11/14/16 05:54 11/14/16 05:54 Labs: Laboratory Results - last 24 hr 11/13/16 11/14/16 11/14/16 08:31 05:54 05:54 WBC 4.0 RBC 4.03 Hgb 8.5 L Hct 28.9 L MCV 71.7 L MCH 21 L MCHC 29.4 L RDW 22.2 H Plt Count 134 Neut % (Auto) 74.9 H Lymph % (Auto) 9.5 L [place] % (Auto) 14.0 H Eos % (Auto) 1.0 Baso % (Auto) 0.3 Neut # (Auto) 3.0 Lymph # (Auto) 0.4 L [place] # (Auto) 0.6 Eos # (Auto) 0.0 Baso # (Auto) 0.0 Immature Gran % 0.3 Nucleated RBC % 1.0 Immature Gran # 0.01 Nucleated RBCs # 0.04 Platelet Estimate Adequate Hypochromasia 2+ Microcytosis 2+ Target Cells Few Ovalocytes Few Sodium 148 H Potassium 4.3 Chloride 114 H Carbon Dioxide 21 Anion Gap 17.3 H BUN 105 H Creatinine 4.20 H GFR Calculation 16 BUN/Creatinine Ratio 25.00 H Glucose 100 POC Glucose 104 Calculated Osmolality 326.3 H Calcium 8.6 11/14/16 07:05 WBC RBC Hgb Hct MCV MCH MCHC RDW Plt Count Neut % (Auto) Lymph % (Auto) [place] % (Auto) Eos % (Auto) Baso % (Auto) Neut # (Auto) Lymph # (Auto) [place] # (Auto) Eos # (Auto) Baso # (Auto) Immature Gran % Nucleated RBC % Immature Gran # Nucleated RBCs # Platelet Estimate Hypochromasia Microcytosis Target Cells Ovalocytes Sodium Potassium Chloride Carbon Dioxide Anion Gap BUN Creatinine GFR Calculation BUN/Creatinine Ratio Glucose POC Glucose 101 Calculated Osmolality Calcium I, Ronel Collins DO, personally performed the services described in this documentation, ascribed by Britt Yap RN in my presence, and it is both accurate and complete .
[2016-11-14] MEDS: DEXTROSE 5% 1,000 ML IV SCH (14:29)
--- NOTE | 2016-11-14 15:56 | Case Mgmt Physician Query Form ---
TB Signs and Symptoms Screening ([place]) INSTRUCTIONS: To be completed annually on residents/staff with a significant Tuberculin Skin Test (TST) upon admission/hire or a prior significant TST. To be completed on all staff at hire. Please respond to each listed symptom with an (X) in either the "YES" or "NO" box. Do you currently have any of the following symptoms: YES NO ( ) ( ) A cough If yes, is it: ( ) Productive ( ) Non- productive ( ) ( ) Hemoptysis (spitting up blood) ( ) ( ) Chest pains ( ) ( ) Weight Loss ( ) ( ) Fever ( ) ( ) Night Sweats ( ) ( ) Weakness ( ) ( ) Loss of Appetite ( ) ( ) Difficulty Breathing If you answered YES" to any of the above questions, how long have symptoms been present? Comments: RAFITA
[2016-11-15] MEDS: DEXTROSE 5% 1,000 ML IV SCH ×2 (06:16→19:39)
[2016-11-15 06:39] LABS: Calcium 8.4 MG/DL (8.5-10.1); Osmolality,Calculated 320.7 MOS/KG (273-304)
[2016-11-15] MEDS: ISOSORBIDE MONONITRATE 30 MG TABLET PO SCH ×2 (07:53→10:38)
[2016-11-15] MEDS: PANTOPRAZOLE 40 MG TABLET PO SCH ×2 (07:53→10:38)
[2016-11-15] MEDS: CARVEDILOL 12.5 MG TABLET PO SCH ×3 (07:54→22:42)
[2016-11-15] MEDS: FUROSEMIDE 40 MG TABLET PO SCH ×2 (07:54→16:20)
[2016-11-15] MEDS: TAMSULOSIN 0.4 MG CAPSULE PO SCH ×2 (07:54→10:38)
--- NOTE | 2016-11-15 10:09 | Case Mgmt Physician Query Form ---
TB Signs and Symptoms Screening ([place]) INSTRUCTIONS: To be completed annually on residents/staff with a significant Tuberculin Skin Test (TST) upon admission/hire or a prior significant TST. To be completed on all staff at hire. Please respond to each listed symptom with an (X) in either the "YES" or "NO" box. Do you currently have any of the following symptoms: YES NO ( ) (x ) A cough If yes, is it: ( ) Productive ( ) Non- productive ( ) ( x) Hemoptysis (spitting up blood) ( ) (x ) Chest pains ( ) (x ) Weight Loss ( ) (x ) Fever ( ) (x ) Night Sweats ( ) (x ) Weakness ( ) (x ) Loss of Appetite ( ) (x ) Difficulty Breathing If you answered YES" to any of the above questions, how long have symptoms been present? Comments: RAFITA
--- NOTE | 2016-11-15 10:26 | Hospitalist Progress Note ---
Assessment and Plan (1) Hypernatremia Status: Acute Assessment and plan: Sodium level 145 cont on D5W at 75 cc per hr Recheck sodium level in am Current Visit: Yes (2) CHF exacerbation Status: Chronic Assessment and plan: Patient with anasarca and mild and moderate ascites On Lasix therapy Continue current medical regimen as cardiology recommended Restarted on beta-blockers Current Visit: Yes Qualifiers: Congestive heart failure type: combined Qualified Code(s): I50.43 - Acute on chronic combined systolic (congestive) and diastolic (congestive) heart failure (3) Ventricular bigeminy Status: Acute Assessment and plan: His pacemaker low threshold was increased to 70 He started on Coreg Heart rate 60-70/min Current Visit: Yes (4) Anemia of chronic disease Status: Chronic Assessment and plan: H&H is stable we will continue to monitor H and H Current Visit: No (5) BPH (benign prostatic hyperplasia) Status: Chronic Assessment and plan: Continue home medication Current Visit: No (6) Cardiomyopathy Status: Chronic Assessment and plan: Ischemic cardiomyopathy Status post ICD placement On Lasix therapy Current Visit: No (7) Renal failure Status: Chronic Assessment and plan: pt has a h/o CKD, not on HD His creatinine 4.1 Cr on admit 3.8 I suspect is due to poor oral intake, dehydration and Lasix therapy cont gentle hydration with D5W at 75 cc/hr nephrology consulted Current Visit: No Hospitalist: Subjective Interval history: Mr. Johns is a 76 year old male who presented to the Er with dyspnea and chest pain and insomnia. ER physician states that pt's daughter says he will scream out in pain but is unable to tell her why. Mr. Johns is a very poor historian and has difficulty speaking with staff. He is not able to provide ROS of PMH. Old record review shows him with a PMH significant for HTN, CHF, Renal insufficiency, gout, CABG, and PM. His PCP is Dr. Brown, high school biology teacher is Dr. Salmon. Cardiology was consulted. His last echo revealed ejection fraction 20%. It was noted that his bradycardia due to PVCs, recommended to restart beta blockers and PM was increase to low 70/min. Apparently his abdomen was distended and he was tender on abdominal palpation. Abdominal CT was ordered, no acute intra-abdominal abnormalities was noted, just mild to moderate ascites , anasarca. Today: Alert. She does not answer questions. He moans. No distress noted. Denies pain. Afebrile. Vital signs stable. CR -4.1. He was ambulating with assistance of physical therapy. CM consulted for swing bed placement. Exam - Constitutional Vitals: Period Temp Pulse Resp BP Sys/Shafer Pulse Ox Last 24 Hr 97.6 F-98.2 F 69-70 18-22 116-130/71-88 94-99 General appearance: normal weight, no acute distress, other (moans ) - Head Head exam: Present: normal inspection, normocephalic - Eye Eye exam: Present: EOMI Pupils: Present: WINSOME - ENT ENT exam: Present: normal exam - Neck Neck exam: Present: normal inspection - Respiratory Respiratory exam: Present: decreased breath sounds. Absent: clear to auscultation bilaterally - Cardiovascular Cardiovascular exam: Present: regular rate and rhythm - GI/Abdominal GI/Abdominal exam: Present: normal bowel sounds, distended, other (mild ascites , tympany on percussion ) - Extremities Exam Extremities exam: Present: normal inspection, normal capillary refill - Neurological Exam Neurological exam: Present: alert, other (doen not respond to questions ) - Psychiatric Psychiatric exam: Present: depressed, flat affect - Skin Skin exam: Present: normal color, warm, dry Results - Labs CBC & BMP: 11/14/16 05:54 11/15/16 05:13
[2016-11-15] MEDS ORDERED: TUBERCULIN SKIN TEST 0.1 ML SYRINGE INTRADERM ONE (12:00)
--- NOTE | 2016-11-15 12:11 | Nephrology Consult Note ---
History of Present Illness Chief complaint: chronic renal failure History of present illness: Mr. Johns is a 76 year old male whom I have followed in the past for chronic renal failure. He was admitted with shortness of breath and bradycardia. He was noted to have bigeminy and his pacemaker was adjusted along with increasing his beta sania. He has chronic renal failure with creatinine between 3.2 and 3.8 since June 2015. He was treated with diuretics for shortness of breath this admission. BUN, creatinine and sodium have risen. He opens his eyes to voice but does not answer questions. Home Medications Medication Instructions Recorded Confirmed Type Febuxostat [Uloric] 40 mg PO DAILY 06/09/16 11/13/16 History Isosorbide Mononitrate [Isosorbide 30 mg PO DAILY 06/09/16 11/13/16 History Mononitrate ER] Pantoprazole Tab [Protonix Tab] 40 mg PO DAILY tablet 06/13/16 11/13/16 Rx Tamsulosin [Flomax] 0.4 mg PO DAILY capsule 06/13/16 11/13/16 Rx Carvedilol [Coreg] 12.5 mg PO BID 11/13/16 11/13/16 History Furosemide Tab [Lasix Tab] 40 mg PO BID DIURETIC 11/13/16 11/13/16 History Allergies Allergy/AdvReac Type Severity Reaction Status Date / Time aspirin Allergy Unknown/Unable Verified 06/09/16 18:33 to obtain Penicillins Allergy Unknown/Unable Verified 06/09/16 18:33 to obtain Medical,Surgical,& Family Hx - Medical History Cardio: History of: CHF (ischemic CM with both systolic and diastolic dysfunction.NYHA III-IV StageC), CAD (CABG at some point in 2010 in [place]), Hypertension, Pacemaker Rheumatology: History of;: Gout Renal: History of: Renal Problems Genitourinary: History of: Prostate Problems Gastrointestinal: History of: GERD Musculoskeletal: History of: Musculoskeletal Problems (arthritis) Hematology: History of: Anemia - Surgical History Cardiac Surgeries: Sugical HX of: Cardiac Catheterization, Cardiac Surgery ( bypass in 2010), Internal Defibrillator ([employer]D [employer] - Interrogated 11/13/16 - results in chart) - Family History Family History: Reports;: Family Heart Disease, Family Hypertension Denies;: Family Diabetes - Social History Smoking Status: Former smoker Frequency of Alcohol Use: None Type of Drug Use: None Review of Systems ROS unobtainable: due to mental status Exam - Vital Signs Vital signs: Period Temp Pulse Resp BP Sys/Shafer Pulse Ox Last 24 Hr 97.4 F-98.2 F 69-70 18-22 116-130/76-88 94-99 Exam: Gen.: He opens his eyes to voice. He does not answer questions. ENT: Pupils equal round reactive to light. Neck: Supple. No JVD or bruit. Cardiovascular: Regular rate and rhythm. No murmur rub or gallop Lungs: No rales or wheezes Abdomen: Mildly distended. Nontender Extremities: Trace pedal edema Results - Labs CBC & BMP: 11/14/16 05:54 11/15/16 05:13 Assessment and Plan (1) Chronic kidney disease, stage IV (severe) Status: Chronic Assessment and plan: 76-year-old man admitted with: * Cardiomyopathy. Ejection fraction 20%. * Bigeminy. Improved with medications. * AICD * Chronic renal failure, stage IV. Creatinine range 3.2-3.8 since June 2015. Weight on 06/22/2016 was 79.4 kg. Weight on 11/12/2016 was 81.6 kg. He developed hypernatremia and creatinine quita with diuresis. He has poor cardiac output and renal underperfusion. Diuretics tend to cause worse prerenal azotemia. Agree with judicious IV fluid. * Anemia Current Visit: No (2) Hypernatremia Status: Acute Current Visit: Yes (3) Ventricular bigeminy Status: Acute Current Visit: Yes (4) Insulin dependent diabetes mellitus Status: Chronic Current Visit: Yes (5) BPH (benign prostatic hyperplasia) Status: Chronic Current Visit: No (6) Cardiomyopathy Status: Chronic Current Visit: No (7) Coronary artery disease Status: Chronic Current Visit: No Qualifiers: Coronary Disease-Associated Artery/Lesion type: [place] artery [place] vs. transplanted heart: [place] heart Associated angina: without angina Qualified Code(s): I25.10 - Atherosclerotic heart disease of [place] coronary artery without angina pectoris
--- NOTE | 2016-11-15 17:16 | Cardiology Progress Note ---
Marely Thakkar April RN, am scribing for, and in the presence of, Ronel Collins DO 17 :14. Assessment and Plan - Time spent with patient Time spent with patient: Less than 30 minutes (1) Anemia Status: Acute Current Visit: Yes (2) BPH (benign prostatic hyperplasia) Status: Chronic Current Visit: No (3) CHF exacerbation Status: Chronic Current Visit: Yes Qualifiers: Congestive heart failure type: combined Qualified Code(s): I50.43 - Acute on chronic combined systolic (congestive) and diastolic (congestive) heart failure (4) Coronary artery disease Status: Chronic Current Visit: No Qualifiers: Coronary Disease-Associated Artery/Lesion type: [place] artery [place] vs. transplanted heart: [place] heart Associated angina: without angina Qualified Code(s): I25.10 - Atherosclerotic heart disease of [place] coronary artery without angina pectoris (5) Ventricular bigeminy Status: Acute Assessment and plan: Much improved Current Visit: Yes (6) Dyspnea Status: Chronic Current Visit: Yes (7) Cardiomyopathy Status: Chronic Assessment and plan: EF 20% on ECHO done 10/22/16. Current Visit: No (8) Chronic kidney disease, stage IV (severe) Status: Chronic Current Visit: No (9) Gastroesophageal reflux Status: Chronic Current Visit: No Cardiology - PN: Subj Interval history: Resting in bed in no acute distress. He will not answer any questions, but moans whenever asked anything or touched. Heart rates and blood pressures are better. Mr. Johns is a little more conversant today. He denies any cardiopulmonary complaints. No further recommendations at this time. His ectopy is improved with increasing his beta-sania and increase in the lower rate on his pacemaker/defibrillator. Nothing further to add at this time. Please call if needed. Exam (Progress Note) - Constitutional Vitals: Period Temp Pulse Resp BP Sys/Shafer Pulse Ox Last 24 Hr 97.4 F-98.2 F 69-70 18-22 116-130/71-88 94-99 General appearance: no acute distress, over weight - Head Head exam: Absent: abrasion, hematoma - Eye Eye exam: Absent: periorbital swelling, laceration to eyelids - Respiratory Respiratory exam: Present: rales. Absent: accessory muscle use, chest wall tenderness - Cardiovascular Cardiovascular exam: Present: regular rate and rhythm (No PVC) - GI/Abdominal GI/Abdominal exam: Present: normal bowel sounds, ascites, firm - Extremities Exam Extremities exam: Present: edema (1+ to bilateral lower extremities) - Neurological Exam Neurological exam: Present: alert. Absent: oriented X3 - Skin Skin exam: Present: warm, dry Result/EKG - Labs CBC & BMP: 11/14/16 05:54 11/15/16 05:13 Labs: Laboratory Results - last 24 hr 11/14/16 11/15/16 11:09 05:13 Sodium 145 Potassium 4.0 Chloride 112 H Carbon Dioxide 19 L Anion Gap 18.0 H BUN 99 H Creatinine 4.10 H GFR Calculation 17 BUN/Creatinine Ratio 24.00 H Glucose 131 H POC Glucose 118 H Calculated Osmolality 320.7 H Calcium 8.4 L Ammonia 139 H Karina Thakkar Shea, DO, personally performed the services described in this documentation, ascribed by Britt Yap RN in my presence, and it is both accurate and complete 716 .
[2016-11-16 07:59] LABS: Calcium 8.4 MG/DL (8.5-10.1); Osmolality,Calculated 315.8 MOS/KG (273-304); Potassium 3.9 MMOL/L (3.5-5.1)
[2016-11-16] MEDS: TAMSULOSIN 0.4 MG CAPSULE PO SCH (08:39)
[2016-11-16] MEDS: PANTOPRAZOLE 40 MG TABLET PO SCH (08:40)
[2016-11-16] MEDS: CARVEDILOL 12.5 MG TABLET PO SCH ×2 (08:40→20:51)
[2016-11-16] MEDS: ISOSORBIDE MONONITRATE 30 MG TABLET PO SCH (08:40)
[2016-11-16] MEDS: FUROSEMIDE 40 MG TABLET PO SCH (08:40)
[2016-11-16] MEDS: DEXTROSE 5% 1,000 ML IV SCH ×2 (08:42→21:00)
[2016-11-16] MEDS: DOCUSATE SODIUM 100 MG CAPSULE PO PRN (10:06)
--- NOTE | 2016-11-16 10:09 | Hospitalist Progress Note ---
Assessment and Plan (1) Hypernatremia Status: Acute Assessment and plan: Sodium level 144 cont on D5W at 75 cc per hr Recheck sodium level in am Current Visit: Yes (2) CHF exacerbation Status: Chronic Assessment and plan: Patient with mild/moderate ascites On Lasix therapy Continue current medical regimen as cardiology recommended with beta-blockers and acei Current Visit: Yes Qualifiers: Congestive heart failure type: combined Qualified Code(s): I50.43 - Acute on chronic combined systolic (congestive) and diastolic (congestive) heart failure (3) Ventricular bigeminy Status: Acute Assessment and plan: His pacemaker low threshold was increased to 70 He started on Coreg Heart rate 60-70/min Current Visit: Yes (4) Anemia of chronic disease Status: Chronic Assessment and plan: H&H is stable we will continue to monitor H and H Current Visit: No (5) BPH (benign prostatic hyperplasia) Status: Chronic Assessment and plan: Continue home medication with flomax Current Visit: No (6) Cardiomyopathy Status: Chronic Assessment and plan: Ischemic cardiomyopathy Status post ICD placement On Lasix therapy Current Visit: No (7) Renal failure Status: Chronic Assessment and plan: pt has a h/o CKD, not on HD His creatinine improving, 3.6 this am Cr on admit 3.8 I suspect is due to poor oral intake, dehydration and Lasix therapy cont gentle hydration with D5W at 75 cc/hr appreciate nephrology assistance Current Visit: No (8) Constipation Status: Acute Assessment and plan: start on daily colace 100 mg BID and lactulose PRN cont PT/OT for mobility Current Visit: Yes Hospitalist: Subjective Interval history: Mr. Johns is a 76 year old male who presented to the Er with dyspnea and chest pain and insomnia. ER physician states that pt's daughter says he will scream out in pain but is unable to tell her why. Mr. Johns is a very poor historian and has difficulty speaking with staff. He is not able to provide ROS of PMH. Old record review shows him with a PMH significant for HTN, CHF, Renal insufficiency, gout, CABG, and PM. His PCP is Dr. Brown, military pay clerk is Dr. Salmon. Cardiology was consulted. His last echo revealed ejection fraction 20%. It was noted that his bradycardia due to PVCs, recommended to restart beta blockers and PM was increase to low 70/min. Apparently his abdomen was distended and he was tender on abdominal palpation. Abdominal CT was ordered, no acute intra-abdominal abnormalities was noted, just mild to moderate ascites , anasarca. Today: Alert. No distress noted. His abdomen still distended. I spoke to the nurse, I was told that she manually did fecal disimpaction may need stool softener. His heart rate stable, range of 60-70s per minute. Neurology signed off. Renal function is improving. He is on gentle IV hydration with D5W. Patient is currently waiting for transfer to swing bed. Exam - Constitutional Vitals: Period Temp Pulse Resp BP Sys/Shafer Pulse Ox Last 24 Hr 97.3 F-97.9 F 67-71 16-20 109-125/58-89 97-100 General appearance: over weight, morbidly obese - Head Head exam: Present: normal inspection, normocephalic, atraumatic - Eye Eye exam: Present: EOMI Pupils: Present: WINSOME - ENT ENT exam: Present: normal exam - Neck Neck exam: Present: normal inspection - Respiratory Respiratory exam: Present: clear to auscultation bilaterally - Cardiovascular Cardiovascular exam: Present: regular rate and rhythm - GI/Abdominal GI/Abdominal exam: Present: normal bowel sounds, distended, other (no tenderness on palpation; tympany on percusion ) - Extremities Exam Extremities exam: Present: normal inspection, normal capillary refill - Neurological Exam Neurological exam: Present: alert - Psychiatric Psychiatric exam: Present: normal affect - Skin Skin exam: Present: normal color, warm, dry Results - Labs CBC & BMP: 11/14/16 05:54 11/16/16 05:57
--- NOTE | 2016-11-16 12:30 | Nephrology Progress Note ---
Nephrology - PN: Subj Interval history: He is much more alert today. He is sitting up eating lunch. He denies shortness of breath. Exam (PN)-Nephrology - Vital Signs Vital signs: Period Temp Pulse Resp BP Sys/Shafer Pulse Ox Last 24 Hr 97.4 F-97.9 F 67-71 16-20 109-146/58-89 97-100 Exam: ENT: Normal Cardiovascular: Regular rate and rhythm. No murmur rub or gallop Lungs: Clear Extremities: No edema - Lab 11/14/16 05:54 11/16/16 05:57 Most recent lab results Calcium 8.4 MG/DL (8.5-10.1) L 11/16/16 05:57 Assessment and Plan (1) Chronic kidney disease, stage IV (severe) Status: Chronic Assessment and plan: 76-year-old man admitted with: * Cardiomyopathy. Ejection fraction 20%. * Bigeminy. Improved with medications. * AICD * Chronic renal failure, stage IV. Creatinine range 3.2-3.8 since June 2015. Weight on 06/22/2016 was 79.4 kg. Weight on 11/12/2016 was 81.6 kg. He developed hypernatremia and creatinine quita with diuresis. He has poor cardiac output and renal underperfusion. Diuretics tend to cause worse prerenal azotemia. Renal function has improved since yesterday and is near his baseline. IV rate will be decreased to 50 mL per hour. Lasix decreased to once daily * Anemia Current Visit: No (2) Hypernatremia Status: Acute Current Visit: Yes (3) Ventricular bigeminy Status: Acute Current Visit: Yes (4) Insulin dependent diabetes mellitus Status: Chronic Current Visit: Yes (5) BPH (benign prostatic hyperplasia) Status: Chronic Current Visit: No (6) Cardiomyopathy Status: Chronic Current Visit: No (7) Coronary artery disease Status: Chronic Current Visit: No Qualifiers: Coronary Disease-Associated Artery/Lesion type: [place] artery [place] vs. transplanted heart: [place] heart Associated angina: without angina Qualified Code(s): I25.10 - Atherosclerotic heart disease of [place] coronary artery without angina pectoris
[2016-11-17] MEDS: DEXTROSE 5% 1,000 ML IV SCH ×2 (00:04→07:09)
[2016-11-17 03:58] LABS: Basophils % 0.5 % (0.0-0.8); Eosinophils # 0.1 10*3/uL (0.0-0.87); Eosinophils % 1.4 % (0.00-10.9); Hematocrit 27.7 VOL% (42.0-52.0); Hemoglobin 8.4 GM/DL (14.0-18.0); Immature Granulocytes % 0.2 %; Immature Granulocytes Absolute 0.01 #; Lymphocytes # 0.5 10*3/uL (1.4-4.0); Mean Corpuscular HGB Conc 30.3 GM/DL (32-36); Mean Corpuscular Hemoglobin 21 PG (27-34); Mean Corpuscular Volume 69.3 FL (87-102); Monocytes # 0.8 10*3/uL (0.11-0.8); Monocytes % 17.2 % (1.7-12.7); NRBC # 0.05 10*3/uL; Neutrophils % 68.7 % (38.7-73.9); Platelet Count 123 T/CUMM (130-400); Red Cell Distribution Width 21.7 % (9.3-17.3); White Blood Count 4.4 T/CUMM (4-12)
[2016-11-17 04:18] LABS: Calcium 8.6 MG/DL (8.5-10.1); Osmolality,Calculated 309.8 MOS/KG (273-304); Potassium 3.9 MMOL/L (3.5-5.1)
[2016-11-17 05:00] LABS: Eosinophils 2 % (0-10); Hypochromasia 2+; Lymphocytes 14 % (20-55); Platelet Estimate Adequate; Segmented Neutrophils 67 % (50-85); Total Cells Counted 100
[2016-11-17] MEDS: CARVEDILOL 12.5 MG TABLET PO SCH (08:11)
[2016-11-17] MEDS: DOCUSATE SODIUM 100 MG CAPSULE PO PRN (08:11)
[2016-11-17] MEDS: TAMSULOSIN 0.4 MG CAPSULE PO SCH (08:11)
[2016-11-17] MEDS: PANTOPRAZOLE 40 MG TABLET PO SCH (08:11)
[2016-11-17] MEDS: ISOSORBIDE MONONITRATE 30 MG TABLET PO SCH (08:12)
[2016-11-17] MEDS ORDERED: FUROSEMIDE 40 MG TABLET PO SCH (09:00)
[2016-11-17 11:29] VITALS: BP 122/70
--- NOTE | 2016-11-17 13:15 | Nephrology Progress Note ---
Nephrology - PN: Subj Interval history: He is alert and answers questions. He denies shortness of breath. He is eating. Exam (PN)-Nephrology - Vital Signs Vital signs: Period Temp Pulse Resp BP Sys/Shafer Pulse Ox Last 24 Hr 97.2 F-98 F 69-78 18-20 108-134/57-91 96-100 Exam: ENT: Normal Cardiovascular: Regular rate and rhythm. No murmur rub or gallop Lungs: Clear Extremities: No edema - Lab 11/17/16 02:59 11/17/16 02:59 Most recent lab results Calcium 8.6 MG/DL (8.5-10.1) 11/17/16 02:59 Assessment and Plan (1) Chronic kidney disease, stage IV (severe) Status: Chronic Assessment and plan: 76-year-old man admitted with: * Cardiomyopathy. Ejection fraction 20%. * Bigeminy. Improved with medications. * AICD * Chronic renal failure, stage IV. Renal function is at his baseline. Hypernatremia has resolved. By mouth intake has improved. IV fluid will be stopped * Anemia Current Visit: No (2) Hypernatremia Status: Acute Current Visit: Yes (3) Ventricular bigeminy Status: Acute Current Visit: Yes (4) Insulin dependent diabetes mellitus Status: Chronic Current Visit: Yes (5) BPH (benign prostatic hyperplasia) Status: Chronic Current Visit: No (6) Cardiomyopathy Status: Chronic Current Visit: No (7) Coronary artery disease Status: Chronic Current Visit: No Qualifiers: Coronary Disease-Associated Artery/Lesion type: [place] artery [place] vs. transplanted heart: [place] heart Associated angina: without angina Qualified Code(s): I25.10 - Atherosclerotic heart disease of [place] coronary artery without angina pectoris
--- NOTE | 2016-11-17 13:41 | Discharge Summary ---
Hospital Course - Hospital Course Hospital Course: 76-year-old -[place] male with a history of diabetes and chronic renal failure presents emergency room with complaints of shortness of breath. Patient was noted to be in CHF exacerbation on admission and was diuresis with Lasix. Patient's renal function worsened and patient was seen by Dr. Kaiser Franklin who recommended decreasing his Lasix. His BUN and creatinine on admission was 91 and 3.8 which slightly worsens with diuretics but he has improved down to [address] Franklin feels is his baseline. His blood sugars are well controlled despite not being on medication. Patient was seen by Dr. Samaniego from cardiology who feels he is stable and has signed off. Patient has anemia of chronic disease which is stable. No blood transfusions were given. Patient has a history of ventricular bigeminy and already has a pacemaker. He also has an enlarged prostate which is controlled with Flomax. Patient is stable for discharge to rehab follow-up with Dr. Franklin on discharge and Dr. Dennis on discharge. - Time spent with patient Time with patient DS: Greater than 30 minutes Discharge Plan - Discharge Data Disposition: Rehab Fac/Unit W Plan Readm Condition at Discharge: Stable Discharge Diet: diabetic diet Activity: resume usual activities as tolerated, as per physical therapy Hygiene: no restrictions - Discharge Medications New Acetaminophen Tab [Tylenol Tab] 325 mg PO Q4H PRN #0 tablet PRN Reason: fever, headache/body aches Simethicone Drops [Mylicon Drops] 40 mg PO QID PRN #0 bottle PRN Reason: Gas Lactulose Liquid [Chronulac] 20 gm PO Q4H PRN #0 udcup PRN Reason: Constipation Continue Isosorbide Mononitrate [Isosorbide Mononitrate ER] 30 mg PO DAILY Febuxostat [Uloric] 40 mg PO DAILY Pantoprazole Tab [Protonix Tab] 40 mg PO DAILY tablet Tamsulosin [Flomax] 0.4 mg PO DAILY capsule Carvedilol [Coreg] 12.5 mg PO BID Changed Furosemide Tab [Lasix Tab] 40 mg PO DAILY #0 - Follow Up or Referral - Forms/Instructions Exam - Constitutional Vitals: Period Temp Pulse Resp BP Sys/Shafer Pulse Ox Last 24 Hr 97.2 F-98 F 69-78 18-20 108-134/57-91 96-100 General appearance: normal weight, no acute distress - Respiratory Respiratory exam: Present: clear to auscultation bilaterally - Cardiovascular Cardiovascular exam: Present: regular rate and rhythm, systolic murmur - GI/Abdominal GI/Abdominal exam: Present: normal bowel sounds, soft. Absent: tenderness - Extremities Exam Extremities exam: Present: normal capillary refill. Absent: edema - Neurological Exam Neurological exam: Present: alert, oriented X3 Discharge Results Labs on day of discharge: Labs from last 24 hours 11/17/16 11/17/16 11/16/16 02:59 02:59 15:20 WBC 4.4 RBC 4.00 Hgb 8.4 L Hct 27.7 L MCV 69.3 L MCH 21 L MCHC 30.3 L RDW 21.7 H Plt Count 123 L Neut % (Auto) 68.7 Lymph % (Auto) 12.0 L Ward % (Auto) 17.2 H Eos % (Auto) 1.4 Baso % (Auto) 0.5 Neut # (Auto) 3.0 Lymph # (Auto) 0.5 L Ward # (Auto) 0.8 Eos # (Auto) 0.1 Baso # (Auto) 0.0 Total Counted 100 Immature Gran % 0.2 Nucleated RBC % 1.1 Immature Gran # 0.01 Segmented Neutrophils 67 Lymphocytes 14 L Monocytes 17 H Eosinophils 2 Nucleated RBCs # 0.05 Platelet Estimate Adequate Hypochromasia 2+ Sodium 144 Potassium 3.9 Chloride 110 H Carbon Dioxide 22 Anion Gap 15.9 H BUN 80 H D Creatinine 3.50 H GFR Calculation 21 BUN/Creatinine Ratio 22.00 H Glucose 94 POC Glucose 97 Calculated Osmolality 309.8 H Calcium 8.6 DS: Provider Date of admission: 11/12/16 11:33 Primary care physician: . No PCP Attending physician on admission: Park Mims MD Consults: 11/12/16 11:53 Consult to Pharmacy [CONS] Routine Reason for Pharmacy Consult: Adjust Meds Renal Funct 11/13/16 12:41 Consult to Physician [CONS] Routine Comment: chest pain, bradycardia Consulting Provider: Cardiology - [facility] Consult to Specialist Group: Cardiology When should Consulting Provider be notified: Now Person Notified: BRADLEY Date Notified: 11/13/16 Time Notified: 13:39 11/13/16 12:50 Consult to Case Mgmt/Social Srvs [CONS] Routine Reason for Case Mgmt/Social Srvs: Discharge Planning Consult to Occupational Therapy [CONS] Routine Reason for Occupational Therapy: Evaluate and Treat PT [Consult to Physical Therapy] [CONS] Routine Reason for Physical Therapy: Evaluate and Treat 11/14/16 12:00 Consult to Occupational Therapy [CONS] Routine Reason for Occupational Therapy: Weakness Consult to Physical Therapy [CONS] Routine Reason for Physical Therapy: Evaluate and Treat 11/14/16 12:01 Consult to Case Mgmt/Social Srvs [CONS] Routine Reason for Case Mgmt/Social Srvs: Swingbed/SNF/Fdc 11/15/16 10:31 Consult to Physician [CONS] Routine Comment: TITA on CKD Consulting Provider: Kaiser Franklin Person Notified: ARLETH Date Notified: 11/15/16 Time Notified: 10:45 Discharging clinician: Janny Pool MD
== END 2016-11-17 15:30 | DRG 291 ==
LOC: N.ED 07:54 → N.EDINP 11:33 → N.2E 13:41
PROVIDERS: ADMIT Internal Medicine; ATTEND Internal Medicine